=== PATIENT | female | born 1990 | race Caucasian/White ===

== ENCOUNTER 2018-05-18 15:33 | Emergency (ER) | payer MEDICAID ==
[~2018-05-18] VITALS: Ht 162.6 cm; Wt 67.1 kg
[2018-05-18 15:49] VITALS: BP 121/83; Ht 162.6 cm; Wt 67.1 kg
== END 2018-05-18 18:29 | disposition left against medical advice (07) ==
LOC: ED 15:33
DX: Z53.21 Procedure and treatment not carried out due to patient leaving prior to being seen by health care provider (principal)

== ENCOUNTER 2018-05-24 11:35 | Emergency (ER) | payer MEDICAID ==
[~2018-05-24] VITALS: Ht 162.6 cm; Wt 64.0 kg
[2018-05-24 12:03] VITALS: BP 125/70; Ht 162.6 cm; Wt 64.0 kg
== END 2018-05-24 13:39 | disposition home or self-care (01) ==
LOC: ED 11:35
DX: R21 Rash and other nonspecific skin eruption (principal); M79.89 Other specified soft tissue disorders; F17.210 Nicotine dependence, cigarettes, uncomplicated